=== PATIENT | male | born 1965 | race Caucasian/White ===

== ENCOUNTER 2020-10-07 16:54 | Emergency (ER) | payer OTHER ==
[2020-10-07 17:25] VITALS: BP 118/76; PULSE 75; TEMP 98.1; BMI 31.0
== END 2020-10-07 19:04 | disposition home or self-care (01) ==
LOC: FER 16:54
DX: R22.33 Localized swelling, mass and lump, upper limb, bilateral (principal)
CPT/HCPCS: 93971; 99284-25

== ENCOUNTER 2021-01-12 07:33 | Emergency (ER) | payer OTHER ==
[2021-01-12 07:42] VITALS: BP 111/72; PULSE 76; TEMP 97.8; BMI 30.4
[2021-01-12] MEDS ORDERED: SODIUM CHLORIDE 1,000 ML IV ONE (08:07)
[2021-01-12 08:57] LABS: ALBUMIN 3.8 g/dl (3.4-5.0); BILIRUBIN,TOTAL 0.3 mg/dl (0.2-1); CALCIUM 8.3 mg/dl (8.5-10); CREATININE 1.4 mg/dl (0.55-1.3); HEMATOCRIT 44.8 % (35.4-49); HEMOGLOBIN 15.5 GM/dl (11.7-16.9); MCH 31.7 pg (25.7-33.7); MCHC 34.6 g/dl (32.0-35.9); MEAN CELL VOLUME 91.6 fl (80-96); PLATELET COUNT 122 10^3/uL (134-434); RBC 4.89 M/mm3 (4.00-5.60); RDW 12.2 % (11.9-15.9)
[2021-01-12 09:04] LABS: ADD RBC MORPHOLOGY YES
[2021-01-12 09:07] LABS: WHITE BLOOD COUNT 1.3 K/mm3 (4.0-10.8)
[2021-01-12 10:10] LABS: PLATELET ESTIMATE SLT DECREASE
== END 2021-01-12 12:27 | disposition home or self-care (01) ==
LOC: FER 07:33
PROC: 3E0337Z Introduction of Electrolytic and Water Balance Substance into Peripheral Vein, Percutaneous Approach (ICD-10-PCS; principal; 2021-01-12)
DX: D69.6 Thrombocytopenia, unspecified (principal); D72.819 Decreased white blood cell count, unspecified; R50.9 Fever, unspecified
CPT/HCPCS: 36415; 71046-TC-FY; 80053; 81003; 85025; 87040; 87086; 87804; 99284-25; C9803; U0003; U0005

== ENCOUNTER 2022-04-26 07:38 | Day surgery (SDC) | payer OTHER ==
[2022-04-19 14:19] VITALS: BMI 32.5
[2022-04-26] MEDS ORDERED: BUPIVACAINE HCL/PF 2.5 MG/ML - 30 ML VIAL IJ ONE (10:01)
[2022-04-26] MEDS ORDERED: PROPOFOL 40 ML ONE (10:10)
[2022-04-26] MEDS ORDERED: MIDAZOLAM HCL 2 MG/2 ML SINGLE DOSE VIAL ONE (10:10)
[2022-04-26] MEDS ORDERED: PROMETHAZINE HCL 25 MG/1 ML VIAL IVPB PRN (11:22)
[2022-04-26] MEDS ORDERED: oxyCODONE HCL 5 MG TABLET PO PRN (11:22)
[2022-04-26] MEDS ORDERED: ONDANSETRON 4 MG/2 ML VIAL IVPUSH PRN (11:22)
[2022-04-26] MEDS ORDERED: LACTATED RINGERS SOLUTION 1,000 ML IV SCH (11:30)
[2022-04-26] MEDS ORDERED: oxyCODONE HCL 5 MG TABLET ONE (12:17)
[2022-04-26 12:19] VITALS: RESP 16
[2022-04-26 13:08] VITALS: TEMP 98.6
[2022-04-26 13:13] VITALS: BP 125/80; PULSE 68
== END 2022-04-26 13:00 | disposition home or self-care (01) ==
LOC: FASU 07:38
PROVIDERS: ATTEND Orthopaedic Surgery
PROC: 0MBN0ZZ Excision of Right Knee Bursa and Ligament, Open Approach (ICD-10-PCS; principal; 2022-04-26 10:35)
DX: M70.41 Prepatellar bursitis, right knee (principal); Y93.9 Activity, unspecified
CPT/HCPCS: 88304-TC; 94760

== ENCOUNTER 2022-06-25 22:30 | Emergency (ER) | payer OTHER | END 2022-06-26 00:09 | disposition home or self-care (01) | LOC: FER 22:30 | DX: R10.9 Unspecified abdominal pain (principal) | CPT/HCPCS: 74176-TC; 99284-25 ==